=== PATIENT | male | born 1955 | race Caucasian/White ===

== ENCOUNTER 2021-07-05 10:42 | Outpatient (CLI) | payer MEDICARE, OTHER, SELFPAY ==
--- NOTE | 2021-07-05 10:30 | CT_ITS ---
WS: [id number] CT CHEST TECHNIQUE: Contrast enhanced CT of the chest with coronal and sagittal reformatted images. CLINICAL INFORMATION: R91.8 - Other nonspecific abnormal finding of lung field COMPARISON: CT and PET/CT July 25, 2019 DLP: 1038.[address] scans at [facility] use at least one of these dose optimization techniques: automat ed exposure control; mA and/or kV adjustment per patient size (includes targeted exams where dose is matched to clinical indication); or iterative reconstruction. FINDINGS: Postoperative right upper and middle partial lobectomies Previously described 2.3 cm FDG avid right upper lobe opacity is no longer present today. Additional anterior right upper lobe and superior segment right lower lobe opacities have been resected or resol temitope. Tiny noncalcified opacity right upper lobe measuring 2.8 mm. Recommend 6 month follow-up. Calcified granuloma left lower lobe. Aortic calcification. Proximal main pulmonary arteries are patent. No mediastinal or hilar lymphadeno luci. Normal GE junction. Normal thyroid. No axillary lymphadenopathy. Diffuse fatty infiltration of the liver. Adrenal glands are normal. Hypertrophic changes thoracic spine. CT/CT chest w con* [id number] IMPRESSION: 1. Interval postoperative right upper and middle partial lobectomies 2. Previously described pulmonary opacities have resolved or been resected. 3. Tiny noncalcified opacity right upper lobe measuring 2.8 mm. Recommend 6 mo nth follow-up. 4. Diffuse fatty infiltration of the liver. 5. No mediastinal or hilar lymphadenopathy.
[2021-07-05 11:23] LABS: Blood Urea Nitrogen 16 mg/dL (8-23); Glomerular Filtration Rate 96.7 mL/min (90-130)
[2021-07-05] MEDS: iohexol 300 mg/mL 100 mL Btl IV (11:34)
== END 2021-07-05 10:43 | disposition home or self-care (01) ==
PROVIDERS: PCP Internal Medicine; Visit Provider Thoracic Surgery (Cardiothoracic Vascular Surgery)
DX: R91.8 Other nonspecific abnormal finding of lung field (principal); K76.0 Fatty (change of) liver, not elsewhere classified
CPT/HCPCS: 71260; 82565; 84520; Q9967

== ENCOUNTER 2021-12-05 11:41 | Outpatient (CLI) | payer MEDICARE, OTHER, SELFPAY ==
--- NOTE | 2021-12-05 11:50 | XRR_ITS ---
PROCEDURE INFORMATION: Exam: XR Chest Exam date and time: 12/05/2021 11:50 AM Age: 66 years old Clinical indication: Dyspnea; Prior surgery; Surgery type: Right upper lobectomy; Patient HX: Right upper lobe lung cancer; Additional info: R06.00 - dyspnea, unspecified TECHNIQUE: Imaging protocol: XR of the chest. Views: 2 views. Total images: 2 COMPARISON: CT chest w con* [id number] 07/05/2021 11:31 AM FINDINGS: Lungs: Benign granulomatous disease of the lung is noted in the left apex and left base. Pleural spaces: Unremarkable. No pleural effusion. No pneumothorax. Heart/Mediastinum: Unremarkable. No cardiomegaly. Bones/joints: Osseous structures are unchanged from the prior exam. Other findings: Stable postsurgical changes. XR/XR chest 2V* [id number] IMPRESSION: No acute cardiopulmonary process.
== END 2021-12-05 11:42 | disposition home or self-care (01) ==
LOC: RAD 11:45
PROVIDERS: PCP Internal Medicine; Visit Provider Thoracic Surgery (Cardiothoracic Vascular Surgery)
DX: R06.00 Dyspnea, unspecified (principal)
CPT/HCPCS: 71046

== ENCOUNTER 2022-07-04 08:40 | Outpatient (CLI) | payer MEDICARE, OTHER, SELFPAY ==
--- NOTE | 2022-07-04 08:30 | XR_ITS ---
WS: [id number] Chest 2 views, 07/04/2022 Clinical Data: Z90.2 - Acquired absence of lung [part of] Comparison: PA and lateral chest, 12/05/2021. Findings: No nodules, masses or effusions are seen. The heart is normal. The pulmonary vascularity is not increased. No pneumonia or pneumothorax is seen. There are clips in the right hilum from thoraci c surgery. The right diaphragm is minimally elevated. The aortic arch and descending thoracic aorta s how minimal calcification and tortuosity. XR/XR chest 2V* [id number] Impression: Atherosclerosis.
== END 2022-07-04 08:41 | disposition home or self-care (01) ==
LOC: RAD 08:40
PROVIDERS: PCP Internal Medicine; Visit Provider Thoracic Surgery (Cardiothoracic Vascular Surgery)
DX: Z90.2 Acquired absence of lung [part of] (principal); I70.90 Unspecified atherosclerosis
CPT/HCPCS: 71046

== ENCOUNTER → 2022-07-12 08:52 | Outpatient (BNVA) | payer MEDICARE, SELFPAY | PROVIDERS: PCP Internal Medicine; Visit Provider Thoracic Surgery (Cardiothoracic Vascular Surgery) | DX: Z90.2 Acquired absence of lung [part of] (principal) | CPT/HCPCS: 99212 ==

== ENCOUNTER 2023-07-03 10:03 | Outpatient (CLI) | payer MEDICARE, BC, SELFPAY ==
--- NOTE | 2023-07-03 10:15 | CT_ITS ---
WS: [id number] LDCT LUNG CANCER SCREENING HISTORY: Smoking history TECHNIQUE: Axial imaging performed from the apices to 1 cm below the costophrenic angles. Coronal and sagittal reformats are submitted with axial MIP series. All CT scans at [facility] use at least one of these dose optimization techniques: automated exposure control; mA and/or kV adjustment per patient size (includes targeted exams where dose is matched to clinical indication); or iterativ e reconstruction. DLP: 90.31 mGy.cm DIvol: Mean CTDIvol: 2.10 (mGy) COMPARISON: 07/05/2021 Diagnostic quality: Satisfactory Lungs: Status post RIGHT upper lobectomy. 3 mm noncalcified nodule superior segment RIGHT lower lobe. This nodule was also present on the prior study with minimal increase in size. Benign calcified gran uloma LEFT lower lobe. No mass or endobronchial lesions. Postoperative sutures are noted at the RIGHT hilum. Heart: Normal size heart. No pericardial effusion. Advanced coronary artery calcifications in all 3 m ajor vessels.. Other findings: Mild atherosclerosis thoracic aorta. Normal size pulmonary artery. Neuropathy of any significance. No hiatal hernia. Hepatic steatosis. Thoracic spondylosis. CT/CT lung screening [id number] IMPRESSION: LUNG-RADS: 2S-Benign Appearance or Behavior with Significant Findings FOLLOW UP: 12 Month: Continue annual screening with LDCT OTHER FINDINGS (S MODIFIER): Severe coronary artery calcification.
== END 2023-07-03 10:04 | disposition home or self-care (01) ==
PROVIDERS: PCP Internal Medicine; Visit Provider Thoracic Surgery (Cardiothoracic Vascular Surgery)
DX: Z12.2 Encounter for screening for malignant neoplasm of respiratory organs (principal); Z87.891 Personal history of nicotine dependence
CPT/HCPCS: 71271

== ENCOUNTER → 2023-07-30 13:23 | Outpatient (BNVA) | payer MEDICARE, OTHER, SELFPAY | PROVIDERS: PCP Internal Medicine; Visit Provider Thoracic Surgery (Cardiothoracic Vascular Surgery) | DX: Z90.2 Acquired absence of lung [part of] (principal) | CPT/HCPCS: 99213 ==

== ENCOUNTER 2024-08-14 09:07 | Outpatient (CLI) | payer MEDICARE, OTHER, SELFPAY ==
--- NOTE | 2024-08-14 09:08 | CT_ITS ---
WS: [id number] CT chest wo con [id number] HISTORY: SOLITARY LUNG NODULE, partial RIGHT upper lobectomy. TECHNIQUE: Axial imaging performed through the thorax. Coronal and sagittal reformats are submitted. All CT scans at [facility] use at least one of these dose optimization techniques: automated exposure control; mA and/or kV adjustment per patient size (includes targeted exams where dose is mat ched to clinical indication); or iterative reconstruction. CONTRAST: None DLP: 502.99 mGy.cm COMPARISON: 07/03/2023, 07/05/2021 Lungs and central airway: No change in the 3 mm nodule superior segment RIGHT lower lobe. Mild depend ent changes posteriorly with some mild interstitial thickening on the RIGHT. No progression. Benign g ranuloma LEFT lower lobe. Pleura: Normal. No pleural effusion. Heart and pericardium: Normal size heart with no pericardial effusion. Mediastinum and jennifer: Small but numerous mediastinal and hilar lymph nodes. Hilar regions are poorly evaluated without IV contrast. The remaining lymph nodes in the paratracheal location and para-aortic are small and stable. Vessels: Atherosclerosis aorta. Mildly dilated pulmonary artery. Chest wall and lower neck: No soft tissue masses. Upper abdomen: Hepatic steatosis. No adrenal mass. Contracted gallbladder. Osseous structures: Mild increase in thoracic kyphosis. CT/CT chest wo con [id number] IMPRESSION: 1. Status post partial RIGHT upper lobectomy. 2. Stable 3 mm nodule superior segment RIGHT lower lobe. 3. Small mediastinal and hilar lymph nodes. No adenopathy identified on this u nenhanced exam. 4. Dense coronary artery calcifications. 5. No adrenal mass.
== END 2024-08-14 09:08 | disposition home or self-care (01) ==
LOC: RAD 09:07
PROVIDERS: PCP Internal Medicine; Visit Provider Internal Medicine
DX: R91.1 Solitary pulmonary nodule (principal); Z90.2 Acquired absence of lung [part of]; Z98.890 Other specified postprocedural states; I70.0 Atherosclerosis of aorta; I72.8 Aneurysm of other specified arteries; K76.0 Fatty (change of) liver, not elsewhere classified
CPT/HCPCS: 71250

== ENCOUNTER 2025-11-11 06:49 | Outpatient (CLI) | payer MEDICARE, OTHER, SELFPAY ==
--- NOTE | 2025-11-11 07:11 | CT_ITS ---
WS: [id number] CT chest wo con [id number] REASON FOR EXAM: SOLITARY PULMONARY NODULE IV CONTRAST ADMINISTERED: None TECHNIQUE: Multiple axial images without intravenous contrast. Coronal and sagittal reconstructions. COMPARISON EXAMINATION: CT chest without contrast 08/14/2024. TOTAL EXAM DLP: 575.[address] scans at [facility] use at least one of these dose optimization techniques: automated exposure control; mA and/or kV adjustment per patient size (includes targeted exams where dose is matched to clinical indication); or iterative reconstruction. FINDINGS: The current examination is unchanged compared to the previous study. Central lobar emphysema. Previous upper lobectomy. Hazy groundglass density and cystic change in the posterior most right lower lobe unchanged. 3 mm nodule just superior to the above-noted lung opacity is unchanged. No new findings. CT/CT chest wo con [id number] IMPRESSION: Stable chest. L RADS 2 follow-up 1 year.
== END 2025-11-11 06:50 | disposition home or self-care (01) ==
PROVIDERS: PCP Electrodiagnostic Medicine; Visit Provider Electrodiagnostic Medicine
DX: R91.1 Solitary pulmonary nodule (principal); J43.2 Centrilobular emphysema; Z90.2 Acquired absence of lung [part of]; R91.8 Other nonspecific abnormal finding of lung field
CPT/HCPCS: 71250